=== PATIENT | male | born 1995 | race Asian ===

== ENCOUNTER 2020-12-14 10:54 | Outpatient (CLI) | payer OTHER ==
[2020-12-14 11:53] VITALS: BP 109/75
--- NOTE | 2020-12-14 11:53 | SLEEP CARE CONSULTATION ---
Information from patient questionnaire entered by Zina Diaz. I have reviewed and concur with the information entered by Zina Diaz. This document represents the service I personally performed and the decisions made by me, Taylor Bright ARNP. History of Present Illness Service Date and Time: 12/14/2020 1054 Reason for Visit: New patient Chief Complaint: reports: Insomnia, Unrefreshed sleep, Snoring, Excessive daytime sleepiness, Observed pauses in breathing, Fatigue Date of Onset: 2-3 years Usual bedtime: 10:30 pm Time it takes to fall asleep: 30-60 minutes Snores at night: Yes Observed to quit breathing while asleep: Yes Sleeps alone due to snoring: No Number of times waking at night: 1 Reasons for waking at night: reports: Other (unknown reason) Toss, Turn, or Twitch while sleeping: Yes Recalls having dreams: No (not recently) Usually gets out of bed at: 5:27 am; weekends 0700 Feels refreshed in the morning: No Morning headache: Yes (resolves after drinking coffee; just about every day) Sleepy or fatigued during the day: Yes Ever fallen asleep while driving: No Takes day naps: Yes (45 mins to 1-5 hours, daily) Dreams during day naps: No Prior sleep studies: No Additional HPI information: I had the pleasure of seeing AXEL GUZMAN today regarding the possibility of him having a sleep disorder. His current complaints are excessive daytime sleepiness, fatigue, observed pauses in breath, snoring and unrefreshed sleep. He has been told by his girlfriend that his snoring can be moderate to loud in intensity. She has also noted some pauses in breathing when he is sleeping. He will lay down to sleep about 10:30 pm but it takes him 30-60 minutes to fall asleep. He only awakens once during the night for an unknown reason. He wakes up with a headache most mornings that will resolve after he drinks coffee. He feels his concentration has been getting progressively worse over the last couple of years. He states that his father has diagnosed sleep apnea but is not on any treatment. 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 Patient is Single and lives in [place]. Have you smoked in the past 12 months: Yes Cigarettes per day (20/pack): 1 (E-cigarette) Years of smokin Quit date: 10/2020 Smoking Pack Years: 0 Alcohol use: Yes Alcohol amount and frequency: 1 drink every other month Caffeine use: Yes Caffeine amount and frequency: 16 oz daily Family History Family history of sleep disordered breathing: Yes Family Hx Sleep Apnea: Father: Snoring, Sleep apnea - Untreated Allergies and Home Medications Drug allergies reviewed: Yes (penicillin, motrin) Home medication list reviewed: Yes Allergy and home medication list: Protonix, prn Melatonin, prn Metamucil Probiotics Review of Systems Weight gain over past 5 years: 20 Cardiovascular: reports: palpitations. denies: high blood pressure Gastrointestinal: reports: heartburn (3-4 times a week), abdominal pain Neurological: reports: headaches Psychiatric: reports: anxiety. denies: Attention Deficit Hyperactivity, depression, mood disorder Ear/Nose/Throat: reports: dry mouth/throat (with acid reflux), wisdom teeth removed. denies: tonsillectomy Endocrine: reports: too hot or cold, unexplained weakness Musculoskeletal: reports: joint pain, neck pain, back pain, muscle pain or cramping Immunologic: reports: sneezing, itching, allergies to food or environment (shellfish) Physical Exam Blood Pressure: 109/75 Cuff size: wrist Heart Rate: 75 O2 Saturation: 99 Height: 5 ft 7 in Weight: 172 lb Body Mass Index: 26.9 BMI Classification: Overweight Neck circumference: 15 (inches) Nostrils: patent to airflow Mouth and throat: narrow oropharynx Soft palate: long Hard palate: normal Uvula: normal Uvula visualization: 50% Mallampati Class II Tongue: enlarged in size with teeth winn on lateral edges Tonsils: 1+ Neck: normal w/o lymphadenopathy or thyromegaly Heart: regular rate and rhythm Lungs: clear bilaterally Impression and Plan 1. Suspected Obstructive Sleep Apnea-Hypopnea Syndrome, as suggested by a history of loud and irregular snoring, observed cessation of breath while asleep, morning headache, unrefreshed sleep, cognitive impairment, and excessive daytime sleepiness. Narrow oropharynx and obesity are common predisposing factors for obstructive sleep apnea-hypopnea syndrome. I recommend proceeding to polysomnography to confirm the diagnosis and to assess severity. If the patient has significant sleep disordered breathing, a manual CPAP titration study will also be performed to find the optimal treatment pressure. I informed the patient of what the sleep studies involve and after some discussion, obtained agreement to proceed. The pathophysiology of obstructive sleep apnea-hypopnea syndrome was discussed with the patient and health risks of cardiovascular and cerebrovascular disease if not treated. AAS brochure for obstructive sleep apnea-hypopnea syndrome given and reviewed. Risks of drowsy driving discussed in detail and patient advised to avoid long distance driving and to bone puller at the first sign of drowsiness. Patient agreed to plan. * Schedule polysomnography +- manual CPAP titration study and return in 1-2 weeks after the study to discuss result and initiate therapy. * Avoid long distance driving or driving when feeling sleepy. * Avoid alcohol, sedative and muscle relaxant around bedtime. * Attempt to lose weight. * Review instructions provided by trained office staff on how to prepare for the sleep study. * Return for follow-up after sleep study completed. Counseling Topics: Weight loss health impact Visit Type: In Office Time Spent with Patient (minutes): 30 Provider Statement: I spent 100% of the Face to Face Visit with the patient with greater than 50% spent counseling the patient and coordination of care.
== END 2020-12-14 10:55 | disposition home or self-care (01) ==
LOC: SC 10:54
PROVIDERS: ATTEND Nurse Practitioner Family
DX: R06.83 Snoring (principal); R06.81 Apnea, not elsewhere classified; R51.9 Headache, unspecified; G47.8 Other sleep disorders; R41.89 Other symptoms and signs involving cognitive functions and awareness; G47.10 Hypersomnia, unspecified; F17.299 Nicotine dependence, other tobacco product, with unspecified nicotine-induced disorders
CPT/HCPCS: 99203; 99212

== ENCOUNTER 2020-12-20 13:27 | Outpatient (CLI) | payer OTHER | END 2020-12-20 13:28 | disposition home or self-care (01) | LOC: SC 13:27 | PROVIDERS: ATTEND Nurse Practitioner Family | DX: R06.83 Snoring (principal); R06.81 Apnea, not elsewhere classified; R51.9 Headache, unspecified; R53.83 Other fatigue; G47.8 Other sleep disorders; G47.10 Hypersomnia, unspecified | CPT/HCPCS: 95806 ==

== ENCOUNTER 2020-12-28 14:21 | Outpatient (CLI) | payer OTHER ==
--- NOTE | 2020-12-28 14:30 | SLEEP CARE CONSULTATION ---
Information from patient questionnaire entered by Jacquie Bowling. I have reviewed and concur with the information entered by Jacquie Bowling. This document represents the service I personally performed and the decisions made by , Taylor Bright ARNP. History of Present Illness Service Date and Time: 12/28/2020 1420 Initial Hagerman Sleepiness Scale score: 16 (in 2020) Current Hagerman Sleepiness Scale score: 13 Additional HPI information: AXEL GUZMAN returns via Video Telehealth visit for follow up and results of the recently performed home sleep study. The patient was informed of the following findings: No significant sleep disordered breathing with an average AHI of 2.4 and srikanth oxygen saturation of 90%. Patient did not sleep supine during the study. I explained the pathophysiology behind obstructive sleep apnea. Patient does not have sleep apnea and was advised how weight gain could increase the risk of developing sleep apnea in the future. I strongly encouraged the patient to lose weight. Patient has moderate snoring. Snoring can be reduced by weight loss. Weight loss is best achieved with diet consult. Patient instructed to contact PCP for referral. Snoring can also be treated with an oral appliance from a dentist. Advised to check insurance coverage. In addition, an ENT evaluation can be do to see if other treatment is indicated. Patient counseled not drink alcohol less than 4 hours before bedtime as it can increase snoring and apnea. Patient was cautioned about risks of drowsy driving until sleepiness symptoms resolve. Sleep Study - Results Type of Sleep Study: Home sleep study Prior sleep studies: Yes Year and Where: 12/2020 Located within [facility] Polysomnography/Home Sleep Study results: Physician Impression: The quality of the study is good. The length of the study is adequate (> 240 minutes). Please also see the tabulated and graphic data. 1. No significant sleep disordered breathing, with an AHI of 2.4/hr and srikanth SaO2 of 90%. During the study, the patient had 12 apneas (12 obstructive, 0 central, 0 mixed) and 4 hypopneas. The longest episode lasted 54.0 seconds. The patient did not sleep supine during this study (supine AHI was 0, and non-supine, 2.40). Allergies and Home Medications Home medication list reviewed: Yes (no changes) Review of Systems Review of systems same as previous: Yes (no changes) Physical Exam Vital signs obtained and entered by: Telehealth visit to reduce exposure during covid pandemic Height: 5 ft 7 in Impression and Plan Snoring but no significant sleep disordered breathing. Patient advised that often weight loss will reduce snoring as well as apnea risk. An oral appliance can also be used for snoring. This would require a dental consultation. Patient cautioned not to use other online appliances as can cause bite issues. A list of accredited dentists in [facility] and one local dentist who makes oral appliances is available in office. Patient is advised to check if insurance will cover. An ENT consult can also be helpful to determine if any other treatment is an option. * Attempt to lose weight * Avoid alcohol consumption near bedtime * The patient is cautioned about driving until sleepiness is completely reso lved. * Return as needed. Counseling Topics: Weight loss health impact Visit Type: Telehealth Video Video Type: VSee Patient Location: Home Location of Provider: Office Patient agrees and consents to this telehealth visit type: Yes Patient agrees to have their insurance billed: Yes Time Spent with Patient (minutes): 11 Provider Statement: I spent 100% of the Telehealth Video Call with the patient with greater than 50% spent counseling the patient and coordination of care.
== END 2020-12-28 14:22 | disposition home or self-care (01) ==
LOC: SC 14:21
PROVIDERS: ATTEND Nurse Practitioner Family
DX: R06.83 Snoring (principal)